=== PATIENT | male | born 1990 | race Caucasian/White ===

== ENCOUNTER 2016-04-11 08:08 | Emergency (ER) | payer SELFPAY ==
[~2016-04-11] VITALS: Ht 185.4 cm; Wt 120.0 kg
[~2016-04-11 08:08] MED LIST: AMOX500T PO
[2016-04-11 08:09] VITALS: BP 132/83; PULSE 76; RESP 16; TEMP 98.1; O2SAT 96
--- NOTE | 2016-04-11 08:26 | PD ---
HPI Chief Complaint: Cold / Flu Symptoms Time Seen by Provider: 08:26 Travel History International Travel<30 days: No Contact w/Intl Traveler<30days: No Traveled to known affect area: No History of Present Illness HPI 25-year-old male with no past medical history here with complaints of having bronchitis. Patient said he's been coughing for over 3 weeks, and getting better. He says his girlfriend is and he wants something for the cough. He denies any fever or chills. He admits to postnasal drip. PFSH Social History Alcohol Use: Yes Tobacco Use: Yes Substance Use: No Allergies-Medications (Allergen,Severity, Reaction): Coded Allergies: Mushroom (Verified Allergy, Severe, Nausea/Vomiting, 03/22/14) Reported Meds & Prescriptions Reported Meds & Active Scripts Active Amoxil (Amoxicillin) 500 Mg Cap 500 Mg PO TID Review of Systems General / Constitutional: No: Fever Eyes: No: Visual changes HENT: Positive: Rhinitis, No: Headaches Cardiovascular: No: Chest Pain or Discomfort Respiratory: Positive: Cough, No: Shortness of Breath Gastrointestinal: No: Abdominal Pain Genitourinary: No: Dysuria Musculoskeletal: No: Pain Skin: No Rash Neurologic: No: Weakness Psychiatric: No: Depression Endocrine: No: Polydipsia Hematologic/Lymphatic: No: Easy Bruising Physical Exam Narrative GENERAL: AAO x 3, no acute distress, Well-nourished, well-developed patient. SKIN: Warm and dry. No visible rashes or bruising. HEAD: Normocephalic and atraumatic. EYES: No scleral icterus. No injection or drainage. ENT: Mild-moderate post nasal drip. No posterior pharynx erythema. No nasal drainage noted. Mucous membranes pink. Airway patent. NECK: Supple, trachea midline. No JVD. CARDIOVASCULAR: Regular rate and rhythm without murmurs, gallops, or rubs. RESPIRATORY: Breath sounds equal bilaterally. No accessory muscle use. No rhonchi or rales. GASTROINTESTINAL: Abdomen soft, non-tender, nondistended. EXTREMITIES: No cyanosis or edema. PSYCH: AAO x 3, normal affect. Data Data Last Documented VS Vital Signs Date Time Temp Pulse Resp B/P Pulse Ox O2 Delivery O2 Flow Rate FiO2 04/11/16 08:09 98.1 76 16 132/83 96 MDM Medical Decision Making Medical Screen Exam Complete: Yes Emergency Medical Condition: Yes Medical Record Reviewed: Yes Differential Diagnosis viral bronchitis, allergic rhinitis, allergic sinusitis Narrative Course 25-year-old male with no past medical history here with complaints of having bronchitis. Patient said he's been coughing for over 3 weeks, and getting better. He says his girlfriend is and he wants something for the cough. He denies any fever or chills. He admits to postnasal drip. Patient examined and there are no acute findings on exam except for mild- moderate post nasal drip. This is not an emergency condition. A medical screening exam was performed: At the time of evaluation the presenting medical condition was determined not to be of an emergent nature. The patient was given the option of receiving additional care, but declined. Patient was given options for additional community resources from which to obtain care. The Patient Has Been advised to seek medical attention for their presenting complaint. The patient has been advised to return to the ER at any time if an emergent condition develops. Diagnosis Primary Impression: Encounter for medical screening examination Condition: Stable Tiffany Whittaker Apr 11, 2016 08:26
== END 2016-04-11 08:45 | disposition left against medical advice (07) ==
LOC: NEPB 08:08
DX: R05 Cough (principal)
CPT/HCPCS: 99281